=== PATIENT | female | born 1980 | race African-American/Black ===

== ENCOUNTER 2017-04-10 15:05 | Emergency (ER) | payer SELFPAY ==
[2017-04-10 15:14] VITALS: BP 102/56; PULSE 94; RESP 18; TEMP 98.2; O2SAT 99
== END 2017-04-10 15:15 | disposition left against medical advice (07) ==
LOC: NEDAMB 15:05
DX: R55 Syncope and collapse (principal); Z53.21 Procedure and treatment not carried out due to patient leaving prior to being seen by health care provider
CPT/HCPCS: 99281